=== PATIENT | female | born 1985 | race Caucasian/White ===

== ENCOUNTER 2018-07-10 06:18 | Inpatient (IN) | payer OTHER ==
[2018-07-10] MEDS ORDERED: CARBOPROST 250 MCG INJ IM ×2 (06:30→09:30)
[2018-07-10] MEDS ORDERED: MISOPROSTOL 200 MCG TAB PR ×2 (06:30→09:30)
[2018-07-10] MEDS ORDERED: METHYLERGONOVINE 0.2 MG INJ IM ×2 (06:30→09:30)
[2018-07-10] MEDS ORDERED: OXYTOCIN 30 UNITS/LR 500 ML IV ×3 (06:30→09:30)
[2018-07-10 06:56] LABS: ADD MAN DIFF? NO
[2018-07-10] MEDS: LACTATED RINGER'S 1,000 ML IV ×3 (06:58→18:39)
[2018-07-10] MEDS ORDERED: CEFAZOLIN 3 GM in DEXTROSE 5% 100 ML IV (07:00)
[2018-07-10] MEDS ORDERED: OXYTOCIN 30 UNITS/LR 500 ML BAG IV (07:00)
[2018-07-10 07:09] LABS: WHITE BLOOD COUNT 8.7 10^3/ul (4.8-10.8)
[2018-07-10 07:09] LABS: BASOPHILS % 0.5 % (0.0-2.0); EOSINOPHILS # 0.1 10^3/ul (0.0-0.5); EOSINOPHILS % 1.4 % (0.0-7.0); HEMATOCRIT 40.5 % (37.0-47.0); HEMOGLOBIN 12.9 g/dl (12.0-16.0); LYMPHOCYTES # 1.8 10^3/ul (0.8-2.9); LYMPHOCYTES % 21.1 % (15.0-51.0); MEAN CORPUSCULAR HEMOGLOBIN 24.5 pg (29.0-33.0); MEAN CORPUSCULAR HGB CONC 31.9 g/dl (32.0-37.0); MEAN CORPUSCULAR VOLUME 76.9 fl (82.0-101.0); MEAN PLATELET VOLUME 11.4 fl (7.4-10.4); MONOCYTE # 0.5 10^3/ul (0.3-0.9); MONOCYTES % 5.6 % (0.0-11.0); NEUTROPHIL # 6.2 10^3/ul (1.6-7.5); NEUTROPHILS % 70.8 % (39.0-77.0); PLATELET COUNT 214 10^3/UL (140-415); RED BLOOD COUNT 5.27 10^6/ul (4.20-5.40)
[2018-07-10 07:24] LABS: PROTIME 12.2 Sec (11.9-14.9)
[2018-07-10 07:25] LABS: PARTIAL THROMBOPLASTIN TIME 31.3 Sec (23.0-35.0)
[2018-07-10] MEDS ORDERED: morphine SULFATE/PF (10 MG/10 ML) INJ (07:27)
[2018-07-10] MEDS ORDERED: METOCLOPRAMIDE 10 MG INJ (07:27)
[2018-07-10] MEDS ORDERED: DEXAMETHASONE 4 MG/ML 1 ML INJ (07:27)
[2018-07-10] MEDS ORDERED: PHENYLephrine (100 MCG/ML) 5ML SYG ×2 (07:27→08:10)
[2018-07-10] MEDS ORDERED: OXYTOCIN 10 UNIT INJ (07:27)
[2018-07-10] MEDS ORDERED: ONDANSETRON 4 MG INJ (07:27)
[2018-07-10] MEDS ORDERED: KETOROLAC 30 MG INJ (07:27)
[2018-07-10] MEDS: ONDANSETRON 4 MG INJ IV (07:30)
[2018-07-10] MEDS: CITRIC ACID/NA CITRATE 30 ML CUP PO (07:37)
[2018-07-10] MEDS ORDERED: MEPERIDINE 100 MG INJ (08:09)
[2018-07-10] MEDS ORDERED: morphine 2 MG INJ IV ×2 (08:30)
[2018-07-10] MEDS ORDERED: HYDROmorphONE 0.5 MG/0.5 ML SYG IV ×2 (08:30)
[2018-07-10] MEDS ORDERED: DIPHENHYDRAMINE 50 MG INJ IV (08:30)
[2018-07-10] MEDS ORDERED: HYDROCODONE/APAP (5/325) TAB PO (08:30)
[2018-07-10] MEDS ORDERED: NALOXONE (0.4 MG/ML) INJ IV (08:30)
[2018-07-10] MEDS ORDERED: ONDANSETRON 4 MG INJ IV (08:30)
[2018-07-10] MEDS ORDERED: NALBUPHINE HCL (10 MG/1 ML) INJ IV (08:30)
[2018-07-10] MEDS ORDERED: EPHEDrine SULFATE 50 MG/5 ML SYG IV (08:30)
[2018-07-10] MEDS ORDERED: ALBUMIN HUMAN 5% 250 ML IV (08:30)
[2018-07-10] MEDS ORDERED: ACETAMINOPHEN 500 MG TAB PO (08:30)
[2018-07-10] MEDS ORDERED: METHYLERGONOVINE 0.2 MG TAB PO (09:30)
[2018-07-10] MEDS: KETOROLAC 30 MG INJ IV (13:01)
[2018-07-10 13:05] LABS: AMPHETAMINE/METHAMPHETAMINE Negative (NEGATIVE); BARBITURATES Negative (NEGATIVE); BENZODIAZEPINES Negative (NEGATIVE); CANNABINOIDS Negative (NEGATIVE); COCAINE Negative (NEGATIVE); OPIATES Positive (NEGATIVE)
[2018-07-10] MEDS: LANOLIN 7 GM TUBE TOP (14:39)
[2018-07-10] MEDS: OXYTOCIN 30 UNITS/LR 500 ML IV (14:46)
[2018-07-10 20:52] LABS: RAPID PLASMA REAGIN NONREACTIVE (NR)
[2018-07-10] MEDS: SENNA/DOCUSATE NA (8.6MG/50MG) TAB PO (21:35)
[2018-07-11] MEDS: KETOROLAC 30 MG INJ IV (00:45)
[2018-07-11] MEDS: LACTATED RINGER'S 1,000 ML IV ×2 (01:35→06:13)
[2018-07-11] MEDS ORDERED: HYDROCODONE/APAP (5/325) TAB PO (07:30)
[2018-07-11 08:05] LABS: ADD MAN DIFF? NO
[2018-07-11 08:12] LABS: WHITE BLOOD COUNT 10.1 10^3/ul (4.8-10.8)
[2018-07-11 08:12] LABS: BASOPHILS % 0.3 % (0.0-2.0); EOSINOPHILS # 0.1 10^3/ul (0.0-0.5); EOSINOPHILS % 0.9 % (0.0-7.0); HEMATOCRIT 31.2 % (37.0-47.0); HEMOGLOBIN 9.9 g/dl (12.0-16.0); LYMPHOCYTES # 2.1 10^3/ul (0.8-2.9); MEAN CORPUSCULAR HEMOGLOBIN 24.8 pg (29.0-33.0); MEAN CORPUSCULAR HGB CONC 31.7 g/dl (32.0-37.0); MEAN CORPUSCULAR VOLUME 78.2 fl (82.0-101.0); MEAN PLATELET VOLUME 11.1 fl (7.4-10.4); MONOCYTE # 0.7 10^3/ul (0.3-0.9); MONOCYTES % 6.8 % (0.0-11.0); NEUTROPHIL # 7.1 10^3/ul (1.6-7.5); NEUTROPHILS % 70.5 % (39.0-77.0); PLATELET COUNT 161 10^3/UL (140-415); RED BLOOD COUNT 3.99 10^6/ul (4.20-5.40); RED CELL DISTRIBUTION WIDTH 17.2 % (11.5-14.5)
[2018-07-11 08:37] LABS: ANION GAP 9 (5-13); BLOOD UREA NITROGEN 6 mg/dl (7-20); CALCIUM 8.2 mg/dl (8.4-10.2); CARBON DIOXIDE 21 mmol/L (21-31); CHLORIDE 107 mmol/L (97-110); CREATININE 0.52 mg/dl (0.44-1.00); Estimated GFR > 60 mL/min (>60); GLUCOSE 69 mg/dl (70-220); POTASSIUM 3.6 mmol/L (3.5-5.1); SODIUM 137 mmol/L (135-144)
[2018-07-11] MEDS: SENNA/DOCUSATE NA (8.6MG/50MG) TAB PO ×2 (09:21→21:00)
[2018-07-11] MEDS: HYDROCODONE/APAP (5/325) TAB PO ×3 (09:22→22:38)
[2018-07-11] MEDS: BISACODYL 10 MG SUPP PR (16:04)
[2018-07-11] MEDS: MAGNESIUM HYDROXIDE 30ML CUP PO (16:04)
[2018-07-11] MEDS: IBUPROFEN 800 MG TAB PO (17:10)
[2018-07-12] MEDS: IBUPROFEN 800 MG TAB PO ×2 (05:06→23:51)
[2018-07-12] MEDS ORDERED: BISACODYL 10 MG SUPP PR (06:00)
[2018-07-12] MEDS ORDERED: MAGNESIUM HYDROXIDE 30ML CUP PO (06:00)
[2018-07-12] MEDS: SENNA/DOCUSATE NA (8.6MG/50MG) TAB PO ×2 (08:32→20:36)
[2018-07-12] MEDS: HYDROCODONE/APAP (5/325) TAB PO ×4 (08:32→20:36)
[2018-07-13 07:48] LABS: ADD MAN DIFF? NO
[2018-07-13 07:55] LABS: WHITE BLOOD COUNT 9.3 10^3/ul (4.8-10.8)
[2018-07-13 07:55] LABS: BASOPHIL # 0.1 10^3/ul (0.0-0.1); BASOPHILS % 0.5 % (0.0-2.0); EOSINOPHILS # 0.4 10^3/ul (0.0-0.5); EOSINOPHILS % 4.1 % (0.0-7.0); HEMATOCRIT 32.9 % (37.0-47.0); HEMOGLOBIN 10.1 g/dl (12.0-16.0); LYMPHOCYTES # 1.6 10^3/ul (0.8-2.9); LYMPHOCYTES % 17.1 % (15.0-51.0); MEAN CORPUSCULAR HGB CONC 30.7 g/dl (32.0-37.0); MEAN CORPUSCULAR VOLUME 78.3 fl (82.0-101.0); MEAN PLATELET VOLUME 11.1 fl (7.4-10.4); MONOCYTE # 0.7 10^3/ul (0.3-0.9); MONOCYTES % 7.2 % (0.0-11.0); NEUTROPHIL # 6.6 10^3/ul (1.6-7.5); NEUTROPHILS % 70.3 % (39.0-77.0); PLATELET COUNT 198 10^3/UL (140-415); RED CELL DISTRIBUTION WIDTH 17.2 % (11.5-14.5)
[2018-07-13] MEDS: MEASLES,MUMPS,RUBELLA VACCINE INJ SC* (07:58)
[2018-07-13] MEDS: SENNA/DOCUSATE NA (8.6MG/50MG) TAB PO (08:45)
[2018-07-13] MEDS: HYDROCODONE/APAP (5/325) TAB PO ×2 (08:45→13:00)
[2018-07-13] MEDS: DIPHTH/TET/ACEL PERTUSS (ADULT) 0.5 ML VIAL IM* (08:46)
[2018-07-13] MEDS: IBUPROFEN 800 MG TAB PO (14:41)
== END 2018-07-13 17:50 | disposition home or self-care (01) | DRG 784 ==
LOC: L-D 06:18 → PP1 11:57
PROVIDERS: Obstetrics & Gynecology
PROC: 10D00Z1 Extraction of Products of Conception, Low, Open Approach (ICD-10-PCS; principal; 2018-07-10 07:30)
PROC: 0UL70ZZ Occlusion of Bilateral Fallopian Tubes, Open Approach (ICD-10-PCS; 2018-07-10 07:30)
DX: O34.211 Maternal care for low transverse scar from previous cesarean delivery (principal); C85.90 Non-Hodgkin lymphoma, unspecified, unspecified site; Z68.42 Body mass index [BMI] 45.0-49.9, adult; O99.62 Diseases of the digestive system complicating childbirth; K66.0 Peritoneal adhesions (postprocedural) (postinfection); O99.214 Obesity complicating childbirth; E66.9 Obesity, unspecified; Z30.2 Encounter for sterilization; Z3A.39 39 weeks gestation of pregnancy; Z37.0 Single live birth
CPT/HCPCS: 80048; 80307; 85025; 85610; 85730; 86592; 86850; 86900; 86901; 88302; 90715; 99464